=== PATIENT | female | born 1990 | race Asian ===

== ENCOUNTER 2019-09-19 15:48 | Outpatient (CLI) | payer BC ==
--- NOTE | 2019-09-19 16:29 | CT ---
CT Abdomen Pelvis WO Con 09/19/2019 12:00 AM HISTORY: Right flank pain for past 2 weeks with associated nausea. History of renal calculi. COMPARISON: None. Technique: Multiple contiguous axial CT images are obtained through the abdomen and pelvis without IV contrast. Coronal reformats are provided. FINDINGS: This examination is limited for the evaluation of solid organs and vascular structures due to the lac k of intravenous contrast. Lower Chest: Lung bases are clear aside from minimal linear atelectasis versus scarring at the left l tanner base. Abdomen: Liver: within normal limits. Gallbladder: Decompressed Pancreas: within normal limits. Spleen: within normal limits. Adrenals: within normal limits. Kidneys: A punctate nonobstructing calculus is seen in the midportion left kidney. A few nonobstructi ng calculi are seen in the inferior pole right kidney better visualized on coronal images. Ureters: No ureteral calculus is seen.. Pelvis: Urinary bladder: within normal limits. Reproductive Organs: Soft tissue prominence in the right adnexal region is likely related to patient' s right ovary with an adjacent partially fluid-filled loop of small bowel. No obvious adnexal mass is appreciated on this nonenhanced CT scan examination, and the adnexal structures are limited due to nonenhanced CT appearance. Lymph Nodes: No enlarged lymph nodes. Bowel: Small amount of retained fecal material seen throughout the colon. Loops of small bowel are no rmal in caliber. Appendix: The appendix is normal in caliber. Peritoneum: No free fluid, free air, or fluid collection. Retroperitoneum: within normal limits. Vessels: Abdominal aorta is normal in caliber.. Abdominal Wall: within normal limits. Bones: within normal limits. IMPRESSION: 1. Punctate nonobstructing bilateral renal calculi . No hydronephrosis is seen, and there is no urete ral calculus. 2. No CT evidence of appendicitis.
== END 2019-09-19 15:49 | disposition home or self-care (01) ==
LOC: SCSCT 15:48
PROVIDERS: ATTEND Obstetrics & Gynecology
DX: R10.9 Unspecified abdominal pain (principal); R11.2 Nausea with vomiting, unspecified; N20.0 Calculus of kidney; Z87.442 Personal history of urinary calculi
CPT/HCPCS: 74176